=== PATIENT | female | born 1975 | race Caucasian/White ===

== ENCOUNTER 2018-05-07 10:41 | Emergency (ER) | payer BC ==
[~2018-05-07] VITALS: Ht 165.1 cm; Wt 49.0 kg
--- NOTE | 2018-05-07 11:22 | NUR ---
Patient discharged to home in stable conditon. Written and verbal after care instructions given. Patient verbalizes understanding of instructions.
== END 2018-05-07 11:23 | disposition home or self-care (01) ==
LOC: ER 10:41
DX: S90.862A Insect bite (nonvenomous), left foot, initial encounter (principal); L08.9 Local infection of the skin and subcutaneous tissue, unspecified; Z88.6 Allergy status to analgesic agent; W57.XXXA Bitten or stung by nonvenomous insect and other nonvenomous arthropods, initial encounter; Y93.89 Activity, other specified; Y92.89 Other specified places as the place of occurrence of the external cause; Y99.8 Other external cause status
CPT/HCPCS: 99283; A4663

== ENCOUNTER 2021-02-20 08:58 | Emergency (ER) | payer BC ==
[~2021-02-20] VITALS: Ht 165.1 cm; Wt 57.6 kg
[2021-02-20] MEDS ORDERED: SULF1TAB48 PO (09:28)
[2021-02-20] MEDS ORDERED: CEPH500C2 PO (09:28)
--- NOTE | 2021-02-20 09:40 | NUR ---
PT WAS EVALUATED BY DR HUERTA. PT WAS D/C'd TO HOME, D/C INSTRUCTIONS GIVEN TO THE PT BY DR HUERTA. PT VERBALISED FULL UNDERSTANDING.
[2021-02-20 09:42] VITALS: BP 131/71
== END 2021-02-20 09:43 | disposition home or self-care (01) ==
LOC: ER 09:00
DX: L03.113 Cellulitis of right upper limb (principal); T63.441S Toxic effect of venom of bees, accidental (unintentional), sequela
CPT/HCPCS: A4663